=== PATIENT | female | born 2000 | race Caucasian/White ===

== ENCOUNTER 2024-12-13 20:53 | Emergency (ER) | payer MEDICAID | END 2024-12-13 22:03 | disposition home or self-care (01) | LOC: JP.ED 20:53 | DX: M25.562 Pain in left knee (principal); F17.210 Nicotine dependence, cigarettes, uncomplicated; Z86.16 Personal history of COVID-19; Z79.899 Other long term (current) drug therapy; Z88.0 Allergy status to penicillin | CPT/HCPCS: 73562-26-LT; 73562-LT; 99283 ==

== ENCOUNTER 2025-03-04 19:45 | Emergency (ER) | payer MEDICAID ==
[2025-03-04 21:11] LABS: BASOPHILS ABSOLUTE AUTO 0.09 K/uL (0.00-0.10); BASOPHILS PERCENT AUTO 1.1 % (0.1-1.3); EOSINOPHILS ABSOLUTE AUTO 0.14 K/uL (0.00-0.40); EOSINOPHILS PERCENT AUTO 1.6 % (0.0-5.4); IMMATURE GRAN PERCENT AUTO 0.2 % (0.0-0.7); LYMPHOCYTES ABSOLUTE AUTO 2.89 K/uL (0.8-3.3); LYMPHOCYTES PERCENT AUTO 33.8 % (11.4-47.7); MONOCYTES ABSOLUTE AUTO 0.79 K/uL (0.20-0.90); MONOCYTES PERCENT AUTO 9.3 % (3.3-12.6); NEUTROPHILS ABSOLUTE AUTO 4.61 K/uL (1.0-7.6); NEUTROPHILS PERCENT AUTO 54.0 % (40.0-78.1); PLATELET COUNT,PLT 250 K/uL (130-375); RED BLOOD CELL COUNT 3.87 M/uL (3.77-5.24); WHITE BLOOD CELL COUNT,WBC 8.5 K/uL (3.2-11.0)
[2025-03-04 21:12] LABS: IMMATURE GRAN ABSOLUTE AUTO 0.02 K/uL (0.00-0.23)
[2025-03-04 21:31] LABS: A/G RATIO 1.3 (1.2-2.2); ALANINE AMINOTRANSFERASE,ALT 19 U/L (12-78); ASPARTATE AMNIOTRANSFERASE,AST 14 U/L (15-37); BILIRUBIN TOTAL 0.4 mg/dL (0.2-1.0); BLOOD UREA NITROGEN,BUN 6 mg/dL (7-18); CARBON DIOXIDE,CO2 25 mmol/L (21-32); CHLORIDE,CL 104 mmol/L (100-108); CREATININE 0.9 mg/dL (0.6-1.0); EST CRCL DRUG DOSING (CG) 82.75 mL/min; ESTIMATED GFR 90 mL/min (>60); GLUCOSE RANDOM 91 mg/dL (74-106); POTASSIUM,K 3.3 mmol/L (3.6-5.2); PROTEIN TOTAL,TP 6.8 g/dL (6.4-8.2); SODIUM,NA 140 mmol/L (140-148)
[2025-03-04] MEDS: Aluminum Hydroxide/Magnesium Hydroxide/Simethicone Susp 30 ML Cup PO ONE (21:57)
== END 2025-03-04 22:21 | disposition home or self-care (01) ==
LOC: JP.ED 19:45
DX: R10.11 Right upper quadrant pain (principal); R10.13 Epigastric pain; Z88.0 Allergy status to penicillin; Z79.899 Other long term (current) drug therapy; Z90.49 Acquired absence of other specified parts of digestive tract
CPT/HCPCS: 36415; 80053; 83690; 85025; 99284; A9270; 99283

== ENCOUNTER 2025-03-26 07:46 | Day surgery (SDC) | payer MEDICAID ==
[2025-03-26 08:06] LABS: PLATELET COUNT,PLT 255.0 K/uL (130-375); RED BLOOD CELL COUNT 4.22 M/uL (3.77-5.24); WHITE BLOOD CELL COUNT,WBC 9.8 K/uL (3.2-11.0)
[2025-03-26 08:21] LABS: BLOOD UREA NITROGEN,BUN 9 mg/dL (7-18); CARBON DIOXIDE,CO2 29 mmol/L (21-32); CHLORIDE,CL 104 mmol/L (100-108); CREATININE 0.8 mg/dL (0.6-1.0); ESTIMATED GFR 104 mL/min (>60); GLUCOSE RANDOM 99 mg/dL (74-106); POTASSIUM,K 3.6 mmol/L (3.6-5.2); SODIUM,NA 138 mmol/L (140-148)
[2025-03-26] MEDS: Nozin Nasal Sanitizer NASBOTH ONE (08:40)
[2025-03-26] MEDS: Lactated Ringers 1,000 ML IV SCH (09:15)
[2025-03-26] MEDS ORDERED: Midazolam 1 MG/ML 2 ML SDV ONE (10:09)
[2025-03-26] MEDS ORDERED: Propofol 200 MG/20 ML SDV ONE (10:09)
[2025-03-26] MEDS ORDERED: fentaNYL 250 MCG/5 ML SDV ONE ×2 (10:10→10:39)
[2025-03-26] MEDS ORDERED: Ketorolac 30 MG/ML SDV ONE (10:48)
[2025-03-26] MEDS ORDERED: Ondansetron 4 MG/2 ML SDV ONE (11:11)
[2025-03-26] MEDS ORDERED: Dexamethasone 4 MG/ML SDV ONE (11:11)
[2025-03-26] MEDS: Acetaminophen/oxyCODONE 325-5 MG Tab PO PRN (13:24)
== END 2025-03-26 14:12 | disposition home or self-care (01) ==
LOC: JP.SDS 07:46
PROVIDERS: ATTEND Specialist
DX: S83.512A Sprain of anterior cruciate ligament of left knee, initial encounter (principal); S83.282A Other tear of lateral meniscus, current injury, left knee, initial encounter; Z88.0 Allergy status to penicillin; X58.XXXA Exposure to other specified factors, initial encounter
CPT/HCPCS: 01400-QZ; 36415; 80048; 84703; 85027; A9270-GY; C1713; J0665; J0690; J1100; J1885; J2250; J2405; J2704; J3010; J7120